=== PATIENT | male | born 1965 | race Caucasian/White ===

== ENCOUNTER 2022-04-12 22:11 | Emergency (ER) | payer OTHER, SELFPAY ==
[2022-04-12 22:19] VITALS: BP 142/98; PULSE 85; RESP 18; TEMP 36.4; O2SAT 98; BMI 25.8
[2022-04-13 00:19] VITALS: BP 135/84; PULSE 78; RESP 18; TEMP 36.7; O2SAT 98
[2022-04-13 00:19] LABS: Creatinine, Point-of-Care* 1.2 mg/dl (0.6-1.3)
[2022-04-13 00:20] VITALS: BP 135/84; PULSE 78; RESP 18; TEMP 36.7
--- NOTE | 2022-04-13 00:21 | ED.GENADULT ---
HPI - General Adult General Date Seen: 04/12/22 Chief complaint: Cough Stated complaint: covid +/wanted to get some medication. Time Seen by Provider: 04/12/22 22:27 Source: patient Mode of arrival: ambulatory Limitations: no limitations History of Present Illness HPI narrative: Patient is a 49-year-old gentleman who has been sick for the last 2 days, tested COVID positive with his doctor, is coming to the emergency room for requesting medication. He feels that he has fevers on off for the last 2 days, aches, cough, sore throat, but no problems with chest pain or short shortness breath. No nausea vomiting, works as a transit bus operator nonsmoker, history of hypertension, and elevated BMI. Related Data Home Medications Medication Instructions Recorded Confirmed aspirin 81 mg tablet,delayed 81 mg PO DAILY 04/12/22 04/12/22 release (Adult Aspirin Regimen) atenolol 25 mg tablet 12.5 mg PO Q24H 04/12/22 04/12/22 cetirizine 10 mg tablet (24Hour 10 mg PO DAILY PRN 04/12/22 04/12/22 Allergy) cyclobenzaprine 10 mg tablet 10 mg PO TID 04/12/22 04/12/22 diclofenac sodium 1 % topical gel 2 g topical QID 04/12/22 04/12/22 (Arthritis Pain (diclofenac)) escitalopram oxalate 10 mg tablet 10 mg PO DAILY 04/12/22 04/12/22 ezetimibe 10 mg tablet 10 mg PO DAILY 04/12/22 04/12/22 famotidine 20 mg tablet 20 mg PO BID 04/12/22 04/12/22 lorazepam 1 mg tablet 1 mg PO BID PRN 04/12/22 04/12/22 modafinil 200 mg tablet 200 mg PO DAILY 04/12/22 04/12/22 omeprazole 20 mg capsule,delayed 20 mg PO BID 04/12/22 04/12/22 release rosuvastatin 20 mg tablet 20 mg PO DAILY 04/12/22 04/12/22 tadalafil 20 mg tablet 20 mg PO PRN 04/12/22 triamcinolone acetonide 0.1 % topical 04/12/22 lotion Previous Rx's Medication Instructions Recorded nirmatrelvir 300 mg (150 mg See Rx Instructions PO .COMPLEX 04/13/22 x2)-ritonavir 100 mg tablet,dose #30 ea pack(EUA) (Paxlovid) Allergies Allergy/AdvReac Type Severity Reaction Status Date / Time No Known Drug Allergies Allergy Verified 04/12/22 22:21 Review of Systems Status of ROS: Reports: 10 or more systems reviewed and unremarkable except as noted in History and below [facility] Medical History Anxiety Chronic cervical pain Chronic tonsillitis Hypertension Lumbar pain Prostate cancer Tobacco use disorder Torus mandibularis Surgical History History of hernia repair History of tonsillectomy Social History Smoking Status: Current every day smoker What tobacco products do you use: cigarettes Second hand tobacco smoke exposure: Yes How often do you have a drink containing alcohol: never How often do you have six or more drinks on one occasion: Never AUDIT-C Alcohol total score: 0 Non-prescribed substance use: denies use Exam Narrative: Exam Narrative: Patient is peaking normally, problem with slurring words, oriented x3. Head eyes ears nose and throat exam show equal pupils, no scleral icterus, extraocular muscles are normal, no facial droop, speech is normal, trachea normal and midline. Thyroid normal midline palpable not enlarged. Chest shows symmetrical rise bilaterally, normal auscultation with no wheezes, no increased work of breathing, no overt bruising or lesions seen, no tenderness is noted on auscultation. Heart sounds normal with no S3-S4 no murmurs clicks or gallops. Abdomen shows no obvious masses or hepatosplenomegaly, no organomegaly, bowel sounds are normal in all quadrants. No tenderness is noted also in all quadrants. Upper and lower extremities show normal power, normal range of motion, pulses are normal, sensations normal, fine motor movements are normal, pelvis is stable to rocking. Cervical spine shows normal range of motion, and palpably not tender. Thoracic spine shows normal range of motion, and palpably not tender, lumbar spine shows no tenderness to palpation percussion and is otherwise normal range of motion. Skin shows no rashes, petechiae or eccymosis. Const: Vital Signs, click to edit/add: Vital Signs - 24 hr 04/12/22 22:19 04/13/22 00:19 04/13/22 00:20 Temperature 97.6 F 98.0 F 98.0 F Pulse Rate [Right Pulse Oximeter] 85 78 78 Respiratory Rate 18 18 18 Blood Pressure [Ri ght Upper Arm] 142/98 H 135/84 135/84 Pulse Oximetry 98 98 Oxygen Delivery Me thod Room Air Room Air Documenting provider has reviewed patient's vital signs: yes Course Vital Signs Vital signs: Initial Vital Signs Temperature 97.6 F 04/12/22 22:19 Temperature Source Temporal Artery Scan 04/12/22 22:19 Pulse Rate 85 04/12/22 22:19 Respiratory Rate 18 04/12/22 22:19 Blood Pressure 142/98 H 04/12/22 22:19 Blood Pressure Mean 112 04/12/22 22:19 Blood Pressure Position Sitting 04/12/22 22:19 Pulse Oximetry 98 04/12/22 22:19 Oxygen Delivery Method 04/12/22 22:19 Vital Signs Temperature 97.6 F 04/12/22 22:19 Pulse Rate 85 04/12/22 22:19 Respiratory Rate 18 04/12/22 22:19 Blood Pressure 142/98 H 04/12/22 22:19 Pulse Oximetry 98 04/12/22 22:19 Oxygen Delivery Method 04/12/22 22:19 Temperature 98.0 F 04/13/22 00:20 Pulse Rate 78 04/13/22 00:20 Respiratory Rate 18 04/13/22 00:20 Blood Pressure 135/84 04/13/22 00:20 Pulse Oximetry 98 04/13/22 00:19 Oxygen Delivery Method 04/13/22 00:19 Medical Decision Making MDM Narrative Medical decision making narrative: Life-threatening differential diagnosis includes occluded COPD exacerbation, pulmonary edema, acute coronary syndromes, pulmonary embolism, pneumonia, and pneumothorax. Other differential diagnosis considerations include asthma, bronchitis as well as other etiologies such as COVID-19 Lab Data Lab results reviewed: Yes I reviewed the patient's lab results Labs: Lab Results 04/13/22 Range/Units 00:16 POC Creatinine 1.2 (0.6-1.3) mg/dl When I review the patient's lab data and function in his height and weight, his GFR is approximately 70 Discharge Plan Discharge Clinical Impression: COVID-19 Patient Disposition: Home, Self-Care Condition: Stable Instructions: How To Wash Your Hands (ED), COVID-19 (Coronavirus Disease 2019) (ED) Additional Instructions: Home rest use of Paxlovid, recommend that you do not take Crestor and Cialis while you are taking the COVID medication. The only other significant interaction would be the Provigil which can make you will little bit dizzy injury while your taking the medication. Return here if increasing chest pain shortness of breath or other complications. Prescriptions: New Paxlovid (EUA) 300 mg (150 mg x 2)-100 mg tablets,dose pack See Rx Instructions .ROUTE .COMPLEX Qty: 30 0RF Rx Instructions: take TWO 150 mg tablets of nirmatrelvir with ONE 100 mg tablet of ritonavir twice daily for 5 days No Action atenolol 25 mg tablet 12.5 mg PO Q24H escitalopram oxalate 10 mg tablet 10 mg PO DAILY ezetimibe 10 mg tablet 10 mg PO DAILY famotidine 20 mg tablet 20 mg PO BID lorazepam 1 mg tablet 1 mg PO BID PRN modafinil 200 mg tablet 200 mg PO DAILY omeprazole 20 mg capsule,delayed release(DR/EC) 20 mg PO BID rosuvastatin 20 mg tablet 20 mg PO DAILY tadalafil 20 mg tablet 20 mg PO PRN triamcinolone acetonide 0.1 % lotion TOPICAL diclofenac sodium [Arthritis Pain (diclofenac)] 1 % gel 2 g topical QID Rx Instructions: apply to single elbow, wrist or hand; for hand includes palm/fingers/back of hand cyclobenzaprine 10 mg tablet 10 mg PO TID cetirizine [24Hour Allergy] 10 mg tablet 10 mg PO DAILY PRN aspirin [Adult Aspirin Regimen] 81 mg tablet,delayed release (DR/EC) 81 mg PO DAILY Follow Up/Referrals: Provider,Not a Local [Primary Care Provider] - Stand Alone Forms: [employer] Info Instructions
== END 2022-04-13 00:20 | disposition home or self-care (01) ==
PROVIDERS: Emergency Provider Family Medicine
DX: U07.1 COVID-19 (principal)
CPT/HCPCS: 80048; 82565; 99283; 99284